=== PATIENT | male | born 1985 | race Native Hawaiian/Other Pacific Islander ===

== ENCOUNTER 2018-05-10 20:13 | Emergency (ER) | payer OTHER ==
[~2018-05-10] VITALS: Ht 180.3 cm; Wt 72.6 kg
[2018-05-10 21:35] VITALS: BP 128/75; TEMP 99.1
== END 2018-05-10 21:35 | disposition home or self-care (01) ==
LOC: ED 20:13
DX: T23.101A Burn of first degree of right hand, unspecified site, initial encounter (principal); T31.0 Burns involving less than 10% of body surface; X10.1XXA Contact with hot food, initial encounter; Y92.199 Unspecified place in other specified residential institution as the place of occurrence of the external cause
CPT/HCPCS: 99284; J7040

== ENCOUNTER 2019-06-16 13:11 | Emergency (ER) | payer OTHER ==
[~2019-06-16] VITALS: Ht 177.8 cm; Wt 68.0 kg
[2019-06-16 14:20] VITALS: BP 141/75; TEMP 98.1
== END 2019-06-16 14:20 | disposition home or self-care (01) ==
LOC: ED 13:11
DX: L01.00 Impetigo, unspecified (principal)
CPT/HCPCS: 99281